=== PATIENT | male | born 1965 | race Caucasian/White ===

== ENCOUNTER 2019-01-24 10:50 | Emergency (ER) | payer OTHER ==
[~2019-01-24] VITALS: Ht 177.8 cm; Wt 98.2 kg
[~2019-01-24 10:50] MED LIST: ASPI-903 PO; CIPR500T4 PO; DOCU-144 PO; GLIP10TA14 PO; GLIP5TAB13 PO; IBUP-1542 PO; METF100010 PO; METR500T PO
[2019-01-24 10:53] VITALS: Ht 177.8 cm; Wt 98.2 kg
[2019-01-24] MEDS ORDERED: SOD CHLORIDE 0.9% 1,000 ML IV STA (12:54)
[2019-01-24] MEDS ORDERED: SOD CHLORIDE 0.9% 100 ML ONE (13:40)
[2019-01-24] MEDS ORDERED: IOHEXOL 300MG/ML 150 ML BTL ONE (13:40)
[2019-01-24] MEDS ORDERED: ALBUTEROL 0.083% (NEB) 2.5 MG/3 ML AMP NEB STA (14:36)
[2019-01-24] MEDS ORDERED: IPRATROPIUM (NEB) 0.5 MG/2.5 ML AMP NEB STA (14:36)
[2019-01-24 15:00] VITALS: BP 122/81; PULSE 61; RESP 18
[2019-01-24] MEDS ORDERED: PIPER-TAZO 3.375 GM IV (PMX) 100 ML IVPB ONE (15:00)
== END 2019-01-24 15:55 | disposition home or self-care (01) ==
LOC: E/R 10:50
DX: K61.1 Rectal abscess (principal)
CPT/HCPCS: 74177; 80053; 81001; 83690; 85025; 96374; J2543; J7030; Q9967; Z7502; Z7610; 81003